=== PATIENT | male | born 1995 | race Caucasian/White ===

== ENCOUNTER 2020-11-03 15:26 | Emergency (ER) | payer BC, SELFPAY ==
[2020-11-03 15:26] VITALS: BP 138/85; PULSE 125; RESP 18; TEMP 36.7; O2SAT 97; BMI 27.1
--- NOTE | 2020-11-03 15:55 | EDS_ITS ---
HPI History of Present Illness Chief Complaint: Abn Labs Informant: patient Narrative Narrative: Patient is a 25-year-old previously healthy male who presents to the emergency department for abnormal outpatient lab testing. Patient went to urgent care 3 days ago for right upper quadrant/back pain and dark urine. He was found to have elevated liver enzymes. He had an ultrasound performed as well which showed hepatic steatosis. Patient states that the pain has since resolved. He still having some dark urine. He denies any fevers or chills. He has not been taking any Tylenol. He states he does drink on the weekends. No previous abdominal surgeries. No change in bowel movements. No nausea/vomiting. Time of arrival patient is asymptomatic except for itching of his skin. Patient was sent in by the [facility] who ordered the test. PFSH PFS Home Medications multivitamin 1 tab PO DAILY 11/03/20 [History Last Taken Unknown] Allergy/AdvReac Type Severity Reaction Status Date / Time No Known Allergies Allergy Verified 11/03/20 15:28 Social History Smoking Status: Former smoker ROS ROS ED Constitutional Constitutional ED: Denies chills or fever(s) ENT ENT ED: Denies epistaxis or rhinorrhea Cardiovascular Cardiovascular: Denies chest pain or palpitations Respiratory/Chest Respiratory/Chest: Denies cough, dyspnea or dyspnea on exertion Gastrointestinal Gastrointestinal: Denies abdominal pain, diarrhea, nausea or vomiting Genitourinary Genitourinary ED: Denies dysuria, hematuria or urinary frequency Musculoskeletal Musculoskeletal: Denies back pain or neck pain Integumentary Reports other Details: Skin itchiness ; Denies rash Neurologic Neurologic: Denies dizziness, headache(s) or weakness EXAM Physical Exam Const Vital Signs: 11/03/20 15:26 11/03/20 15:32 Temperature 98.1 F Temperature Source Temporal Pulse Rate 125 H Respiratory Rate 18 Respiratory Effort Normal Non-Labored Respiratory Pattern Normal Blood Pressure 138/85 H Blood Pressure Mean 102 Pulse Ox 97 Oxygen Delivery Method Room Air Positive well nourished and well developed General Appearance ED: well developed and NAD HEENT Reports normocephalic, head/scalp atraumatic and moist mucous membranes Eyes PERRL and EOMs intact bilaterally General Eye ED: Negative for scleral icterus Neck supple Resp normal respiratory effort and clear to auscultation bilaterally Auscultation: Negative for rales, rhonchi or wheezes Cardio regular rate, regular rhythm and no murmurs GI normal to inspection, nondistended, normoactive bowel sounds and non-tender Palpation: soft; Negative for guarding or rebound tenderness present Back/Spine no CVA tenderness Extremity normal to inspection General Extremety ED: Negative for edema or tenderness General Extremity: Negative for edema Neuro Sensorium / Orientation: alert Motor Exam: strength 5/5 throughout Psych mental status grossly normal Skin no rashes or lesions noted MDM MDM MDM Narrative Medical decision making narrative: Patient presents to the ED for abnormal ultrasound of the right upper quadrant and lab work from urgent care. On arrival to the emerge department patient has some itchy skin but otherwise denies any symptoms. Has benign physical exam. On arrival to the emerge department he was mildly tachycardic but this has returned closer to normal on my examination. I did pull up his previous lab work performed on 05/03/2020 which had a bilirubin of 3.7, alkaline phosphatase of 313, AST of 138, ALT of 270. His ultrasound of the right upper quadrant showed hepatic steatosis. No evidence of cholelithiasis, cholecystitis and common bile duct was within normal limits. Given patient being asymptomatic at this time and work-up already being performed I do not feel patient requires any repeat imaging, lab work in the emergency department. He does need for close follow-up from gastroenterology. I believe this referral could have been made from the urgent care. Patient given contact information for Dr. Ervin. Patient advised not to take any Tylenol, stop drinking completely. Patient denies any recent travel, supplement use. Return precautions are reviewed with him including any significant ab dominal pain, bloody stools, bleeding, fever/chills. He understands and is agreeable this plan. Discharged home in stable condition. All questions were answered. Discharge Plan Triage Chief Complaint: Abn Labs ED Provider: Omar Hollins Dx/Rx/DC Orders Clinical Impression: Transaminitis, Elevated bilirubin Instructions: Total Bilirubin (Blood) Prescriptions: No Action multivitamin Tablet 1 tab PO DAILY RF: 0 Primary Care Provider: NOT,DEFINED Referrals: John Ervin MD [NON-STAFF] - As soon as possible NOT,DEFINED [Primary Care Provider] - Disposition Disposition: Home, Self Care
[2020-11-03 16:06] VITALS: PULSE 117; RESP 16; O2SAT 99
--- NOTE | 2020-11-03 16:07 | ED.RN ---
REVIEWED D/C INSTRUCTIONS, FOLLOW UP CARE, AND S/S THAT WOULD WARRANT A RETURN TO THE ED WITH PT. PT VERBALIZED AN UNDERSTANDING AND DENIES FURTHER QUESTIONS FOR THIS RN. PT SKIN P/W/D, RESP EVEN AND UNLABORED, PT A&O X 3, NO DISTRESS NOTED. PT AMBULATED OUT OF ED, GAIT STEADY.
== END 2020-11-03 16:08 | disposition home or self-care (01) ==
LOC: ED 16:02
PROVIDERS: Emergency Provider Emergency Medicine
DX: K76.0 Fatty (change of) liver, not elsewhere classified (principal); Z87.891 Personal history of nicotine dependence
CPT/HCPCS: 99282